=== PATIENT | male | born 1965 | race Caucasian/White ===

== ENCOUNTER 2018-03-04 13:48 | Day surgery (SDC) | payer OTHER, SELFPAY ==
--- NOTE | 2018-03-04 | PATH_ITS ---
[facility] Accession Number: [id number] . 01 Material submitted: . POLYP AT 45CM . 02 Diagnosis: Biopsy, Colon Polyp at 45 cm: Polypoid-shaped fragment of normal appearing colon mucosa consistent with mucosal polypoid redundancy. Negative for evidence of neoplasm and/or hyperplasia on multiple serial histologic sections. MRV/03/06/2018 . 02 Electronically signed: . Milan Rao MD, Pathologist NPI- [id number] . 01 Gross description: . POLYP AT 45CM: Received in formalin is 1 fragment(s) of pena, soft tissue measuring 0.5 x 0.5 x 0.3 cm submitted entirely in 1 cassette(s) /CKI /CKI . 02 Pathologist provided ICD-10: K63.5 . 02 CPT . 805488 Performed at: 01 [facility] [address], [place], [place] [id number] MD Richardson Alicea MD Phone: [phone] Performed at: 02 [facility] [address] [place], [place] [id number] MD Jake Kaur MD Phone: [phone]
[2018-03-04] MEDS: SODIUM CHLORIDE 0.9% 1,000 ML 200 ML IV (14:13)
[2018-03-04 14:20] VITALS: BP 145/83; PULSE 101; RESP 16; TEMP 36.4; O2SAT 98; BMI 28.3
--- NOTE | 2018-03-04 14:59 | PM.HP.1 ---
History of Present Illness Date Patient Seen: 03/04/18 Time Patient Seen: 15:00 Chief complaint: colonoscopy [id number] Narrative: Very pleasant 52-year-old gentleman with a family history of colon cancer. In October of 2015 he underwent a colonoscopy with removal of a dysplastic colon polyp at 15 cm. Repeat 3 months later showed no regrowth of polyp. He is here now 2 years later to have a surveillance colonoscopy. He denies any problems or symptoms related to the function of his GI tract. He reports that he is in his usual state of health and he is anxious to get this over with. Patient History Surgical History Status post routine circumcision Family & Social History Family History: Reviewed 03/04/18 by Rosa Shannon MD Social History: household members spouse Review of Systems Review of Systems All systems reviewed & are unremarkable except as noted in HPI and below Exam Vital Signs (past 8 hours): - 03/04/18 14:20 Temperature 97.5 F L Pulse Rate 101 H Respiratory Rate 16 Blood Pressure 145/83 H Pulse Oximetry 98 Oxygen Delivery Method Room Air Narrative Exam Narrative: Very pleasant well-nourished well-developed gentleman in no distress HEENT: Normocephalic and atraumatic, pupils equal round reactive to light accommodation with anicteric sclera Lungs: Clear to auscultation bilaterally Heart: Regular rate and rhythm without murmur rub or gallop Abdomen: Soft, nontender, active bowel sounds Extremities: Warm well perfused without edema Assessment & Plan Plan: Assessment/Plan Narrative: Wonderful 52-year-old gentleman with a personal history of dysplastic colon polyp at 15 cm and a strong family history of colon cancer. We discussed the risks and benefits colonoscopy today and the patient expressed a desire to complete the procedure.
--- NOTE | 2018-03-04 15:05 | SUR.OPER ---
Patient brought glasses with him to the Endo Suite, in pink plastic tyson with his ID label affixed. Returned with patient to Recovery.
[2018-03-04] MEDS: fentaNYL 250 MCG/5 ML INJ IV (15:18)
[2018-03-04] MEDS: MIDAZOLAM 5 MG/5 ML VIAL IV (15:18)
--- NOTE | 2018-03-04 15:28 | PM.OP.1 ---
Operative Date/Time/Diagnoses Date of procedure: 03/04/18 Time of procedure: 15:28 Pre-op diagnosis: Personal history of dysplastic polyp Family history of colon cancer Post-op diagnosis: same Procedure & Clinicians Procedure: Colonoscopy to the cecum with polypectomy x1 Same procedure as scheduled: Yes Indications: Last colonoscopy 2 years ago Surgeon: Rosa Shannon Click Yes if Unassisted: Yes Anesthesia Type: Sedation (Versed 7 mg; fentanyl 250 mcg) Operative Notes Findings: 1. Excellent prep 2. A single 2 mm sessile polyp at 45 cm from the anal verge. Removed with cold forceps and retained for pathology. 3. No evidence of polyp regrowth at 15 cm from the anal verge. 4. No other polyps or mass lesions appreciated 5. Mild diverticulosis limited to the sigmoid region 6. No AV malformations Closure Type: not applicable Specimen(s): other (Polyp at 45 cm) Estimated Blood Loss (mL): 1 Procedure in detail: After obtaining informed consent, the patient was brought to the GI suite and placed in the left lateral decubitus position on the examination table. After placement of appropriate monitors, the patient was given incremental doses of Versed and Fentanyl until an appropriate level of sedation was achieved. A time out was held per SCOAP protocol. A digital rectal examination was performed and did not reveal any masses or obstructing lesions. The colonoscope was gently passed into the patient's anus and the entire colon navigated to the level of the cecum with minimal difficulty. Once in the cecum, the scope was withdrawn being sure to go before and beyond all mucosal folds and prominences and get an excellent examination. At 45 cm from the anal verge we encountered a 2 mm lesion that was slightly elevated compared to the surrounding tissue. The tissue was not absolutely convincing for adenoma but due to the patient's history was removed and retained for pathology. Careful examination was made with special attention to the area between 10 and 20 cm from the anal verge. There was absolutely no evidence of regrowth of the previous dysplastic polyp. Other findings are noted above. At the level of the rectal vault, the scope was retroflexed and the internal anal canal was examined. The scope was straightened and air aspirated from the colon. The instrument was removed from the patient's body and the procedure was concluded. The patient was allowed to awaken from sedation without difficulty and taken to the post-anesthesia care unit in good condition. Total sedation time 23 min Total colonoscopy withdrawal time 9 min 12 sec Complications: none Condition: stable Disposition: PACU Plan for aftercare: 1. Discharge to home 2. Plan for next colonoscopy in 3-5 years depending upon pathology. 3. We will contact you with pathology results and any further recommendations.
[2018-03-04 15:32] VITALS: BP 117/75; PULSE 70; RESP 16; TEMP 36.4; O2SAT 97
[2018-03-04 15:37] VITALS: BP 124/90; PULSE 77; RESP 10; O2SAT 96
[2018-03-04 15:55] VITALS: BP 116/78; PULSE 62; RESP 16; TEMP 36.2; O2SAT 97
== END 2018-03-04 16:03 | disposition home or self-care (01) ==
PROVIDERS: PCP Internal Medicine; Visit Provider Surgery
PROC: 0DJD8ZZ Inspection of Lower Intestinal Tract, Via Natural or Artificial Opening Endoscopic (ICD-10-PCS; CPT 45378; principal; 2018-03-04 15:00)
DX: Z86.010 Personal history of colon polyps (principal); Z80.0 Family history of malignant neoplasm of digestive organs; K57.30 Diverticulosis of large intestine without perforation or abscess without bleeding; K63.5 Polyp of colon
CPT/HCPCS: 45380; 99152; 99153; J2250; J3010

== ENCOUNTER 2021-03-18 11:33 | Emergency (ER) | payer OTHER, SELFPAY ==
[2021-03-18 11:44] VITALS: BP 147/80; PULSE 74; O2SAT 98
[2021-03-18 11:56] VITALS: BP 147/80; PULSE 74; RESP 18; TEMP 36.7; O2SAT 97; BMI 28.3
[2021-03-18 12:00] VITALS: PULSE 68; O2SAT 98
--- NOTE | 2021-03-18 12:21 | ED_ITS ---
HPI - Eye Problem General Chief complaint: Eye Problems Stated complaint: detached tissue in left eye Time Seen by Provider: 03/18/21 12:21 Source: patient and family Mode of arrival: Ambulatory Limitations: no limitations History of Present Illness HPI Narrative: The patient over last 3+ days has experienced onset of left eye floaters. There was initial floater, then more. He has had bright flashing lights periodically in the left eye. He has no significant visual hoyos deficit. He has no curtain drop visual field cut. he has not experienced head injury. He denies recent illness. He now has many floaters, he feels like he is looking through sand. Right eye has no similar involvement. His no redness or irritation his eyes. He does not have chronic eye problems. He has no the ENT complaints. He does not complain of headache. He has no sore throat. He has no fever. His no change in taste or smell. He has not received COVID-19 vaccines. Review of Systems Constitutional Constitutional: Reports as per HPI, Denies chills and Denies fever(s) Comments: No recent illness. Eyes Eyes: Reports as per HPI ENT Comments: No other ENT complaints. See HPI. Patient History Medical History (Updated 03/18/21 @ 16:36 by Johnie Henry MD) Elevated blood pressure (12/27/14) Hyperlipidemia (08/12/17) Pulmonary emphysema (01/24/15) Surgical History Status post routine circumcision Family History Father Age: 85 Colon cancer Mother Age: 80 Pancreatic cancer Social History household members: spouse Smoking Status: Current every day smoker Smoking Status: Current every day smoker tobacco type: cigarettes alcohol intake frequency: a few times a week Substance Use Type: does not use Exam Initial Vital Signs Initial Vital Signs: Vital Signs Pulse Rate 74 03/18/21 11:44 Blood Pressure 147/80 H 03/18/21 11:44 Pulse Oximetry 98 03/18/21 11:44 Const General: cooperative, healthy appearing, well developed and well groomed Nutritional Appearance: average body habitus HENNV Head: normal to inspection and normocephalic Nose: external nose normal and nares normal Face and sinus: normal facial exam Mouth: oral mucosae normal Eyes General: appearance normal, both eyes and all related structures Alignment and Position: alignment normal Conjunctivae: conjunctivae normal Sclera: sclerae normal Pupils: PERRL EOM: EOM intact bilaterally Other: Retinal evaluation was not obtainable, ophthalmoscope exam revealed cloudy findings. Visual acuity 20/30 OD, 20/50 OS. Neck Neck: normal visual inspection, full ROM and No lymphadenopathy Course Course Course Narrative: Further evaluation in this ER was not pursued. I discussed the case with Dr. Patel, ophthalmology at [facility]. The patient needs detailed evaluation for concerns of retinal detachment. The patient will have to proceed by POV to [facility] ER, further evaluation will occur there. COVID-19 testing is negative today. Orders Ordered: ED Orders 03/18/21 15:38 COVID19 -Nasal swab/Pre-Proc Stat Vital Signs Vital signs: Vital Signs - 8 hr 03/18/21 11:44 03/18/21 11:56 03/18/21 12:00 Temperature 98.1 F Pulse Rate 74 74 68 Respiratory Rate 18 Blood Pressure 147/80 H 147/80 H Pulse Oximetry 98 97 98 03/18/21 16:10 03/18/21 16:11 Temperature Pulse Rate 69 66 Respiratory Rate Blood Pressure 137/84 Pulse Oximetry 97 98 MDM - Eye Problem Medical Records Medical records narrative: Exam findings are nonspecific. Lab Data Labs: Lab Results 03/18/21 Range/Units 15:38 SARS-CoV-2 (PCR) Negative (Negative) Discharge Plan Departure Patient Disposition: Home Clinical Impression: Left retinal detachment, COVID-19 virus antibody negative Instructions: DI for Retinal Detachment Repair Activity Restrictions/Additional Instructions: Your evaluation is concerning for retinal detachment. I have discussed the situation with Dr. Patel, consulting it architect at [facility] in [place]. You have to check into the ER at [facility] to be seen at this hour. Referrals: Aretha Granados ARNP [Primary Care Provider] -
[2021-03-18 16:09] LABS: COVID19 -Nasal RAPID Negative (Negative)
[2021-03-18 16:10] VITALS: PULSE 69; O2SAT 97
[2021-03-18 16:11] VITALS: BP 137/84; PULSE 66; O2SAT 98
== END 2021-03-18 16:42 | disposition home or self-care (01) ==
PROVIDERS: Emergency Provider Emergency Medicine; PCP Internal Medicine
DX: H33.22 Serous retinal detachment, left eye (principal); Z20.822 Contact with and (suspected) exposure to COVID-19
CPT/HCPCS: 87635; 99282; 99283; C9803

== ENCOUNTER → 2021-09-27 07:30 | Outpatient (CLI) | payer OTHER, SELFPAY ==
[2021-09-27 09:05] LABS: Alanine Aminotransferase 19 IU/L (<50); Albumin 4.4 g/dL (3.5-5.0); Albumin Globulin Ratio 1.6 (1.0-2.8); Alkaline Phosphatase 74 U/L (38-126); Aspartate Aminotransferase 25 IU/L (17-59); BUN Creatinine Ratio 11.4 (6-22); Bilirubin Total 0.6 mg/dL (0.2-1.3); Blood Urea Nitrogen 12 mg/dL (9-20); Calcium 9.4 mg/dL (8.4-10.2); Carbon Dioxide 25 mmol/L (22-32); Chloride 105 mmol/L (98-107); Cholesterol 243 mg/dL (140-199); Estimated Glomerular Filt Rate > 60 mL/min (>60); Globulin 2.7 g/dL (1.7-4.1); Glucose 105 mg/dL (70-100); HDL Cholesterol 32 mg/dL (40-60); LDL Cholesterol Calculated 179 mg/dL (<100); Potassium 4.5 mmol/L (3.4-5.1); Sodium 139 mmol/L (137-145); Total Protein 7.1 g/dL (6.3-8.2); Triglycerides 162 mg/dL (35-150)
[2021-09-27 09:37] LABS: HEMOLYSIS < 15 (0-50); Prostate Specific Antigen Scrn 0.489 ng/mL (0.1-4.0)
== END ==
PROVIDERS: PCP Internal Medicine; Referring Provider Internal Medicine; Visit Provider Internal Medicine
DX: E78.5 Hyperlipidemia, unspecified (principal); F17.200 Nicotine dependence, unspecified, uncomplicated; Z12.5 Encounter for screening for malignant neoplasm of prostate
CPT/HCPCS: 36415; 80053; 80061; G0103

== ENCOUNTER → 2022-10-22 08:03 | Outpatient (CLI) | payer OTHER, SELFPAY ==
[2022-10-22 10:57] LABS: Alanine Aminotransferase 24 IU/L (<50); Albumin 4.2 g/dL (3.5-5.0); Albumin Globulin Ratio 1.6 (1.0-2.8); Alkaline Phosphatase 74 U/L (38-126); Aspartate Aminotransferase 25 IU/L (17-59); BUN Creatinine Ratio 13.6 (6-22); Bilirubin Total 0.6 mg/dL (0.2-1.3); Blood Urea Nitrogen 14 mg/dL (9-20); Calcium 9.2 mg/dL (8.4-10.2); Carbon Dioxide 29 mmol/L (22-32); Chloride 102 mmol/L (98-107); Cholesterol 228 mg/dL (140-199); Estimated Glomerular Filt Rate > 60 mL/min (>60); Globulin 2.7 g/dL (1.7-4.1); Glucose 102 mg/dL (70-100); HDL Cholesterol 32 mg/dL (40-60); HEMOLYSIS < 15 (0-50); LDL Cholesterol Calculated 168 mg/dL (<100); Potassium 4.8 mmol/L (3.4-5.1); Sodium 140 mmol/L (137-145); Total Protein 6.9 g/dL (6.3-8.2); Triglycerides 139 mg/dL (35-150)
[2022-10-22 11:27] LABS: Prostate Specific Antigen Scrn 0.533 ng/mL (0.1-4.0)
== END ==
PROVIDERS: PCP Internal Medicine; Referring Provider Internal Medicine; Visit Provider Internal Medicine
DX: E78.5 Hyperlipidemia, unspecified (principal); J44.9 Chronic obstructive pulmonary disease, unspecified; Z12.5 Encounter for screening for malignant neoplasm of prostate
CPT/HCPCS: 36415; 80053; 80061; G0103

== ENCOUNTER → 2022-10-29 09:49 | Outpatient (CLI) | payer OTHER, SELFPAY ==
--- NOTE | 2022-10-29 09:50 | DI.RAD.S_ITS ---
PROCEDURE: XR CHEST 2V INDICATIONS: cough TECHNIQUE: 2 views of the chest were acquired. COMPARISON: [facility], , CHEST 2 VIEW, 01/03/2015, 7:09. FINDINGS: Surgical changes and devices: None. Lungs and pleura: Lungs are clear. No pleural effusions or pneumothorax. Mediastinum: Mediastinal contours are normal. Heart size is normal. Bones and chest wall: No suspicious bony abnormalities. Soft tissues appear unremarkable. IMPRESSION: No acute process. Dictated by: Arnold Wright M.D. on 10/29/2022 at 11:24 Approved by: Arnold Wright M.D. on 10/29/2022 at 11:24
== END ==
PROVIDERS: PCP Internal Medicine; Referring Provider Internal Medicine; Visit Provider Internal Medicine
DX: R05.9 Cough, unspecified (principal); F17.200 Nicotine dependence, unspecified, uncomplicated; J44.9 Chronic obstructive pulmonary disease, unspecified
CPT/HCPCS: 71046

== ENCOUNTER 2023-03-05 09:06 | Day surgery (SDC) | payer OTHER, SELFPAY ==
[2023-03-05] VITALS (7 sets, daily range): BP systolic 113–182; BP diastolic 72–113; PULSE 58–100; RESP 14–17; TEMP 36.1–36.3; O2SAT 92–100; BMI 28.3
[2023-03-05] MEDS: LACTATED RINGERS 1,000 ML 150 ML IV (09:31)
--- NOTE | 2023-03-05 10:29 | P.HP_ITS ---
History of Present Illness History of Present Illness Date Patient Seen: 03/05/23 Time Patient Seen: 10:29 Chief complaint: [facility] Narrative: 57-year-old man personal history of colonic polyps here for screening colonoscopy. Last colonoscopy 2017. No abdominal concerns today including pain unintentional weight loss, blood per rectum. Father developed colon cancer. [facility] Medical History Generalized anxiety disorder Retinal tear of both eyes History of adenomatous polyp of colon COPD (chronic obstructive pulmonary disease) (~2018) Hyperlipidemia (08/12/17) Insomnia (01/24/15) Family history of malignant neoplasm of colon in relative diagnosed when older than 50 years of age (12/27/14) Surgical History Anesthesia History of colonoscopy Retinal detachment (~2020) Status post routine circumcision Family History Father Colon cancer Mother Pancreatic cancer Grandfather History of heart disease Grandmother Renal failure Grandfather Congestive heart failure Social History household members: spouse Smoking Status: Current every day smoker alcohol intake: current Meds Home Medications and Allergies Home Medications Medication Instructions Recorded Confirmed Type No Known Home Medications 10/29/22 03/05/23 History Allergies Allergy/AdvReac Type Severity Reaction Status Date / Time No Known Drug Allergies Allergy Verified 02/25/23 09:28 Exam Vital Signs (past 8 hours): - 03/05/23 09:14 03/05/23 09:33 Temperature 97.4 F L Pulse Rate 100 H Respiratory Rate 17 Blood Pressure 182/113 H 150/107 H Pulse Oximetry 100 Oxygen Delivery Method Room Air Oxygen Delivery Method Room Air Narrative Exam Narrative: General adult man alert oriented no acute distress Chest nonlabored respiration Extremities warm well perfused Assessment & Plan Assessment and plan (1) History of adenomatous polyp of colon: Problem details: Severe dysplasia 2015, no polyp 2018 Status: Chronic Assessment & Plan narrative: The patient requires colorectal screening and colonoscopy is recommended. Technical details were discussed. Risks, benefits, alternatives explained. Risks including but not limited to myocardial infarction, aspiration, bleeding, pain, missed lesion, incomplete examination, need for further radiographic studies, colonic perforation, and need for major abdominal surgery were discussed. All questions were answered to their satisfaction, and they are in agreement with this plan.
--- NOTE | 2023-03-05 10:54 | P.OP.COLON_ITS ---
Operative Date/Time/Diagnoses Date of procedure: 03/05/23 Time of procedure: 10:54 Pre-op diagnosis: Family history of colon cancer Personal history of colonic polyps Procedure & Clinicians Study performed: Colonoscopy Same procedure as scheduled: Yes Indications: Personal history of colonic polyps Family history of colon cancer Surgeon: Wilbur Biggs Procedure Notes Procedure in detail: The history and physical was performed/updated and the patient is ASA class is 2. The procedure was discussed in detail with the patient. Potential risks complications including infection, bleeding, missed diagnosis, perforation, need for surgery, and were explained. Their questions were answered and informed consent was obtained. Patient was brought to the procedure room and placed standard monitoring equipment. The patient's vital signs were monitored continuously throughout the entire procedure. Prior to starting time-out was performed. The patient was placed in the left lateral recumbent position. Procedural sedation was administered by anesthesia. Examination began with a thorough inspection of the perianal area there was no evidence of fissures, fistulae, external hemorrhoids or cutaneous malignancy. The colonoscopy scope was then placed into the anal canal and was advanced to the cecum, which was identified by the ileocecal valve, the appendiceal orifice and the confluence of the taenia. The scope was then slowly withdrawn examining colon thoroughly in all directions, irrigating it of any residual stool. The scope was retroflexed within the rectum The patient tolerated the procedure well. They will be discharged once criteria are met. The prep was of good/excellent quality. The withdrawl time was 6 minutes. FINDINGS * No masses or polyps * Mild diverticulosis * Grade 1 internal hemorrhoids Specimen(s): none sent Impression: Normal colonoscopy Post-procedure Recommendations: Colonoscopy in 5 years (For family history) Disposition: same day surgery
== END 2023-03-05 11:29 | disposition home or self-care (01) ==
PROVIDERS: PCP Internal Medicine; Referring Provider Surgery; Visit Provider Surgery
PROC: 0DJD8ZZ Inspection of Lower Intestinal Tract, Via Natural or Artificial Opening Endoscopic (ICD-10-PCS; CPT 45378; principal; 2023-03-05 10:15)
DX: Z12.11 Encounter for screening for malignant neoplasm of colon (principal); Z80.0 Family history of malignant neoplasm of digestive organs; K57.30 Diverticulosis of large intestine without perforation or abscess without bleeding; K64.0 First degree hemorrhoids
CPT/HCPCS: 45378; J2704